=== PATIENT | female | born 1935 | race Caucasian/White ===

== ENCOUNTER 2017-04-18 18:45 | Inpatient (IN) | payer MEDICARE, BC ==
[~2017-04-18] VITALS: Ht 165.1 cm; Wt 94.0 kg
[~2017-04-18 18:45] MED LIST: ATENOLOL100 MG PO; LISINOPRIL40 MG PO; OMEPRAZOLE40 MG PO
[2017-04-18] MEDS ORDERED: MELOXICAM7.5 MG PO (19:16)
[2017-04-18] MEDS ORDERED: ATENOLOL50 MG PO (19:16)
[2017-04-18 19:22] LABS: BASOPHILS # (AUTO) 0.1 (0.0-0.1); BASOPHILS % 0.4 % (0.0-1.0); EOSINOPHILS % 0.1 % (0.0-6.0); HEMATOCRIT 47.1 % (34.2-44.1); HEMOGLOBIN 16.1 g/dL (12.0-16.0); LYMPHOCYTES # (AUTO) 1.6 (1.0-3.2); LYMPHOCYTES % 11.1 % (18.0-39.1); MEAN CORPUSCULAR HEMOGLOBIN 30.8 pg (28-32); MEAN CORPUSCULAR HGB CONC 34.2 g/dL (31-35); MEAN CORPUSCULAR VOLUME 90.1 fL (81-99); MONOCYTES # (AUTO) 1.4 (0.2-0.8); MONOCYTES % 10.1 % (4.4-11.3); NEUTROPHILS # (AUTO) 11.1 (2.1-6.9); NEUTROPHILS % 77.7 % (38.7-80.0); PLATELET COUNT 221 x10e3/uL (140-360); RED BLOOD COUNT 5.23 x10e6/uL (3.6-5.1); RED CELL DISTRIBUTION WIDTH 12.8 % (11.7-14.4)
[2017-04-18 19:34] LABS: BILIRUBIN,URINE NEGATIVE (NEGATIVE); CLARITY,URINE CLOUDY (CLEAR); COLOR,URINE YELLOW (YELLOW); KETONES,URINE 1+ (NEGATIVE); LEUKOCYTE ESTERASE ,URINE 2+ (NEGATIVE); NITRITE,URINE NEGATIVE (NEGATIVE); URINE UROBILINOGEN 0.2 mg/dL (0.2 - 1)
[2017-04-18 19:42] LABS: INR 0.95; PROTHROMBIN TIME 13.2 seconds (11.9-14.5)
[2017-04-18 19:43] LABS: PARTIAL THROMBOPLASTIN TIME 36.1 seconds (23.8-35.5)
[2017-04-18 19:45] LABS: ALBUMIN 3.8 g/dL (3.5-5.0); ALBUMIN/GLOBULIN RATIO 0.9 (0.8-2.0); ANION GAP 16.6 mmol/L (8-16); CALCIUM 9.5 mg/dL (8.4-10.2); CREATININE, SERUM 1.19 mg/dL (0.57-1.11); POTASSIUM 4.6 mmol/L (3.5-5.1)
[2017-04-18] MEDS ORDERED: ONDANSETRON HCL INJ 2 MG/ML VIAL IV STA (19:49)
[2017-04-18 19:51] LABS: CREATINE KINASE MB 4.6 ng/mL (0.00-5.00); TROPONIN I 0.015 ng/mL (0-0.300)
[2017-04-18 19:53] LABS: PROTEIN,URINE DIPSTICK 2+ (NEGATIVE)
--- NOTE | 2017-04-18 19:57 | Diagnostic Imaging Report ---
EXAMINATION: Head CT without contrast. HISTORY:Weakness, status post fall. COMPARISON:CT brain from 07/28/2010. TECHNIQUE: Multidetector axial images were obtained from the foramen magnum to the vertex without contrast. The images were reconstructed using brain and bone algorithms. Thin section brain images were reformatted into coronal and sagittal planes. Intravenous contrast: None IMAGE QUALITY: Acceptable. FINDINGS: Skull/scalp: No abnormality. Parenchyma: Unchanged focal hypodensity in posterior and inferior aspect of right lentiform nucleus either represents prominent perivascular space or old lacunar infarct. Unchanged nonspecific bilateral frontoparietal patchy white matter hypodensity are likely related to small vessel ischemic changes. No acute hemorrhage, mass or acute major vascular territorial infarct. Arteries: Atherosclerotic calcification in bilateral carotid siphon. Dural sinuses: No abnormal density suggestive of thrombosis. Ventricles: Unchanged compensated dilatation due to volume loss. No hydrocephalus. Extra-axial spaces: No abnormal density. Brain volume: Normal for age. Craniocervical junction: No mass, Chiari malformation, or basilar invagination. Sella: No mass. Paranasal/mastoid sinuses: Unchanged 7 mm left fronto-ethmoidal osteoma/sinolith. IMPRESSION: No acute intracranial abnormality, particularly no acute hemorrhage, mass or acute major vascular territorial infarct. No change since CT brain from 07/28/2010. Chronic findings: Mild supratentorial white matter microvascular ischemic changes. Generalized age-related cerebral volume loss. Signed by: Dr. Varsha Jha M.D. on 04/18/2017 7:53 PM
[2017-04-18 20:02] LABS: WBC,URINE (MAN) >50 /HPF (0-5)
[2017-04-18 20:03] LABS: BACTERIA,URINE FEW /HPF
[2017-04-18 20:04] LABS: EPITHELIAL CELLS,URINE RARE /LPF
[2017-04-18] MEDS ORDERED: VANCOMYCIN 1GM/NS 250 ML 250 ML IV STA (20:36)
--- NOTE | 2017-04-18 20:45 | Diagnostic Imaging Report ---
CHEST SINGLE (PORTABLE), 04/18/2017 7:30 PM Technique: CHEST SINGLE (PORTABLE) Comparison: None available. Clinical history: Fever, weakness Findings: See Impression. Underlying scoliotic curvature of the spine. Impression: 1. Normal heart size for technique. 2. Elevated right hemidiaphragm with overlying opacity, favor atelectasis/scarring. If there is ongoing concern for infection, consider follow-up upright PA and lateral. 3. No effusion or pneumothorax. Signed by: Dr Hetal Soto MD on 04/18/2017 8:41 PM
[2017-04-18] MEDS ORDERED: LACTATED RINGER'S 1,000 ML IV ONE ×2 (21:00)
[2017-04-18] MEDS ORDERED: ONDANSETRON HCL INJ 2 MG/ML VIAL IV PRN (21:15)
--- NOTE | 2017-04-18 21:23 | Diagnostic Imaging Report ---
PELVIS AP 1-2 VIEWS Comparison: None Clinical history: Fall, hip pain mostly on the left Findings: Overlying bowel gas partially obscures the bony pelvis. Moderate bilateral hip degenerative changes. Impression: No definite acute fracture on provided single view of the pelvis. Signed by: Dr Hetal Soto MD on 04/18/2017 9:19 PM
[2017-04-18] MEDS: OSELTAMIVIR PHOSPHATE 75 MG CAP PO SCH (21:51)
[2017-04-18 22:31] VITALS: BP 141/86
[2017-04-18] MEDS: PIPER-TAZ 3.375 GM 50 ML IV SCH (22:37)
[2017-04-18 23:01] VITALS: BP 141/86
[2017-04-18] MEDS: LEVOFLOXACIN 500MG/D5W 100ML 100 ML IV SCH (23:32)
[2017-04-19] VITALS (7 sets, daily range): BP systolic 128–157; BP diastolic 63–78
[2017-04-19] MEDS: PIPER-TAZ 3.375 GM 50 ML IV SCH ×3 (00:19→12:00)
[2017-04-19 00:41] LABS: CREATINE KINASE MB 7.4 ng/mL (0.00-5.00); TROPONIN I 0.01 ng/mL (0-0.300)
[2017-04-19] MEDS: LEVOFLOXACIN 500MG/D5W 100ML 100 ML IV SCH (08:48)
[2017-04-19] MEDS: OSELTAMIVIR PHOSPHATE 75 MG CAP PO SCH ×2 (08:48→16:15)
[2017-04-19] MEDS: FAMOTIDINE 20 MG/2 ML VIAL IV SCH ×2 (08:48→22:00)
[2017-04-19 10:15] LABS: BASOPHILS % 0.4 % (0.0-1.0); EOSINOPHILS # (AUTO) 0.1 (0.0-0.4); EOSINOPHILS % 1.4 % (0.0-6.0); HEMATOCRIT 43.8 % (34.2-44.1); LYMPHOCYTES % 19.8 % (18.0-39.1); MEAN CORPUSCULAR HEMOGLOBIN 31.2 pg (28-32); MEAN CORPUSCULAR HGB CONC 34.2 g/dL (31-35); MEAN CORPUSCULAR VOLUME 91.1 fL (81-99); MONOCYTES # (AUTO) 1.2 (0.2-0.8); NEUTROPHILS # (AUTO) 6.6 (2.1-6.9); NEUTROPHILS % 65.9 % (38.7-80.0); PLATELET COUNT 202 x10e3/uL (140-360); RED BLOOD COUNT 4.81 x10e6/uL (3.6-5.1); RED CELL DISTRIBUTION WIDTH 13.2 % (11.7-14.4)
[2017-04-19 10:22] LABS: ALBUMIN/GLOBULIN RATIO 0.8 (0.8-2.0); CALCIUM 8.9 mg/dL (8.4-10.2); CHOL/HDL RATIO 2.6 (3.0-3.6); CREATININE, SERUM 0.97 mg/dL (0.57-1.11)
[2017-04-19 10:41] LABS: CREATINE KINASE MB 4.2 ng/mL (0.00-5.00); TROPONIN I 0.01 ng/mL (0-0.300)
[2017-04-19 10:59] LABS: ANION GAP 13.1 mmol/L (8-16); POTASSIUM 4.1 mmol/L (3.5-5.1)
[2017-04-19] MEDS ORDERED: SODIUM CHLORIDE 0.9% 250ML 250 ML ONE (12:15)
[2017-04-19] MEDS: ACETAMINOPHEN 325 MG TAB PO PRN (16:02)
[2017-04-19] MEDS ORDERED: HYDRALAZINE HCL 20 MG/ML VIAL IV PRN (17:15)
[2017-04-19] MEDS: PIPER-TAZ 3.375 GM 100 ML IV SCH (18:00)
[2017-04-19 18:55] LABS: CREATINE KINASE MB 2.2 ng/mL (0.00-5.00); TROPONIN I 0.01 ng/mL (0-0.300)
[2017-04-19] MEDS: ALBUTEROL/IPRATROPIUM 3 ML NEB NEB SCH (19:00)
[2017-04-20] MEDS: PIPER-TAZ 3.375 GM 100 ML IV SCH ×2 (00:34→06:39)
[2017-04-20] MEDS: ALBUTEROL/IPRATROPIUM 3 ML NEB NEB SCH ×2 (01:00→07:00)
[2017-04-20 01:49] VITALS: BP 124/62
[2017-04-20 04:00] VITALS: BP 140/91
[2017-04-20 06:48] LABS: BASOPHILS # (AUTO) 0.1 (0.0-0.1); BASOPHILS % 0.8 % (0.0-1.0); EOSINOPHILS # (AUTO) 0.3 (0.0-0.4); EOSINOPHILS % 3.4 % (0.0-6.0); HEMATOCRIT 47.2 % (34.2-44.1); HEMOGLOBIN 15.9 g/dL (12.0-16.0); LYMPHOCYTES # (AUTO) 2.8 (1.0-3.2); MEAN CORPUSCULAR HEMOGLOBIN 30.8 pg (28-32); MEAN CORPUSCULAR HGB CONC 33.7 g/dL (31-35); MEAN CORPUSCULAR VOLUME 91.3 fL (81-99); MONOCYTES # (AUTO) 1.2 (0.2-0.8); MONOCYTES % 13.1 % (4.4-11.3); NEUTROPHILS # (AUTO) 4.4 (2.1-6.9); NEUTROPHILS % 50.2 % (38.7-80.0); PLATELET COUNT 196 x10e3/uL (140-360); RED BLOOD COUNT 5.17 x10e6/uL (3.6-5.1); RED CELL DISTRIBUTION WIDTH 13.1 % (11.7-14.4)
[2017-04-20 07:07] LABS: ANION GAP 12.9 mmol/L (8-16); CALCIUM 9.1 mg/dL (8.4-10.2); CREATININE, SERUM 0.98 mg/dL (0.57-1.11); MAGNESIUM 1.4 MG/DL (1.3-2.1); POTASSIUM 3.9 mmol/L (3.5-5.1)
[2017-04-20 07:36] LABS: FREE T4 (FREE THYROXINE) 1.14 ng/dL (0.8-1.8); THYROID STIMULATING HORMONE 0.782 uIU/mL (0.350-4.940)
[2017-04-20 08:00] VITALS: BP_SYST 143; BP_SYST 168; BP_DIAS 76; BP_DIAS 92
[2017-04-20 08:26] LABS: B-TYPE NATRIURETIC PEPTIDE2 13.7 pg/mL (0-100)
[2017-04-20] MEDS: PANTOPRAZOLE SOD 40 MG TABEC PO SCH (08:30)
[2017-04-20] MEDS: GUAIFENESIN 600 MG TAB PO PRN ×2 (09:10→22:26)
[2017-04-20] MEDS: FAMOTIDINE 20 MG/2 ML VIAL IV SCH ×2 (09:22→22:26)
[2017-04-20] MEDS: LEVOFLOXACIN 500MG/D5W 100ML 100 ML IV SCH (09:22)
[2017-04-20] MEDS: LISINOPRIL 20 MG TAB PO SCH (09:22)
[2017-04-20] MEDS: OSELTAMIVIR PHOSPHATE 75 MG CAP PO SCH ×2 (09:23→17:00)
[2017-04-20] MEDS: ATENOLOL 100 MG TAB PO SCH (09:23)
[2017-04-20] MEDS: DIPHENHYDRAMINE HCL 30 GM TUBE TOP PRN (11:00)
[2017-04-20] MEDS ORDERED: CEFTRIAXONE SOD 1 GM/NS 50 ML 50 ML IV SCH (11:30)
[2017-04-20] MEDS ORDERED: AZITHROMYCIN 500MG/NS 250 ML 250 ML IV SCH (11:30)
[2017-04-20 12:00] VITALS: BP 97/59
[2017-04-20] MEDS: LACTOBACILLUS ACIDOPHILUS CAPSULE PO SCH ×2 (12:38→17:00)
[2017-04-20 16:00] VITALS: BP 98/53
[2017-04-21 06:27] LABS: BASOPHILS # (AUTO) 0.1 (0.0-0.1); BASOPHILS % 0.5 % (0.0-1.0); EOSINOPHILS # (AUTO) 0.4 (0.0-0.4); EOSINOPHILS % 4.1 % (0.0-6.0); HEMATOCRIT 43.9 % (34.2-44.1); HEMOGLOBIN 14.5 g/dL (12.0-16.0); LYMPHOCYTES # (AUTO) 3.4 (1.0-3.2); LYMPHOCYTES % 35.8 % (18.0-39.1); MEAN CORPUSCULAR HEMOGLOBIN 30.5 pg (28-32); MEAN CORPUSCULAR VOLUME 92.4 fL (81-99); MONOCYTES % 10.8 % (4.4-11.3); NEUTROPHILS # (AUTO) 4.5 (2.1-6.9); NEUTROPHILS % 48.3 % (38.7-80.0); PLATELET COUNT 204 x10e3/uL (140-360); RED BLOOD COUNT 4.75 x10e6/uL (3.6-5.1); RED CELL DISTRIBUTION WIDTH 13.3 % (11.7-14.4)
[2017-04-21 07:09] LABS: ANION GAP 13.6 mmol/L (8-16); POTASSIUM 4.6 mmol/L (3.5-5.1)
[2017-04-21 07:10] LABS: CALCIUM 8.8 mg/dL (8.4-10.2); CREATININE, SERUM 1.52 mg/dL (0.57-1.11); MAGNESIUM 1.7 MG/DL (1.3-2.1)
[2017-04-21 08:00] VITALS: BP 129/61
[2017-04-21] MEDS: PANTOPRAZOLE SOD 40 MG TABEC PO SCH (08:00)
[2017-04-21] MEDS: LEVOFLOXACIN 500MG/D5W 100ML 100 ML IV SCH (08:59)
[2017-04-21] MEDS: FAMOTIDINE 20 MG/2 ML VIAL IV SCH ×2 (08:59→20:42)
[2017-04-21] MEDS: LACTOBACILLUS ACIDOPHILUS CAPSULE PO SCH ×2 (08:59→16:47)
[2017-04-21] MEDS: LISINOPRIL 20 MG TAB PO SCH (09:01)
[2017-04-21] MEDS: ATENOLOL 100 MG TAB PO SCH (09:01)
[2017-04-21] MEDS: OSELTAMIVIR PHOSPHATE 75 MG CAP PO SCH ×2 (11:30→16:47)
[2017-04-21 12:00] VITALS: BP 131/60
[2017-04-21] MEDS: SODIUM CHLORIDE 0.9% 1000ML 1,000 ML IV SCH (12:14)
[2017-04-21 16:00] VITALS: BP 128/59
[2017-04-21] MEDS: BALSAM PERU/CASTOR OIL 60 GM OINT...G. TP SCH (16:48)
[2017-04-21 20:14] VITALS: BP 134/60
[2017-04-22] MEDS: SODIUM CHLORIDE 0.9% 1000ML 1,000 ML IV SCH (04:03)
[2017-04-22] MEDS: PANTOPRAZOLE SOD 40 MG TABEC PO SCH (07:30)
[2017-04-22 08:00] VITALS: BP 151/63
[2017-04-22] MEDS: LACTOBACILLUS ACIDOPHILUS CAPSULE PO SCH ×2 (08:00→17:00)
[2017-04-22] MEDS: LEVOFLOXACIN 500MG/D5W 100ML 100 ML IV SCH (09:00)
[2017-04-22] MEDS: OSELTAMIVIR PHOSPHATE 75 MG CAP PO SCH ×2 (09:00→17:00)
[2017-04-22] MEDS: FAMOTIDINE 20 MG/2 ML VIAL IV SCH ×2 (09:00→21:24)
[2017-04-22] MEDS: BALSAM PERU/CASTOR OIL 60 GM OINT...G. TP SCH ×2 (09:00→17:00)
[2017-04-22] MEDS: LISINOPRIL 20 MG TAB PO SCH (09:00)
[2017-04-22] MEDS: ATENOLOL 100 MG TAB PO SCH (09:00)
[2017-04-22 12:00] VITALS: BP 129/62
[2017-04-22 12:20] LABS: BASOPHILS % 0.5 % (0.0-1.0); EOSINOPHILS # (AUTO) 0.4 (0.0-0.4); EOSINOPHILS % 4.9 % (0.0-6.0); HEMATOCRIT 42.6 % (34.2-44.1); HEMOGLOBIN 14.2 g/dL (12.0-16.0); LYMPHOCYTES # (AUTO) 2.8 (1.0-3.2); LYMPHOCYTES % 37.5 % (18.0-39.1); MEAN CORPUSCULAR HEMOGLOBIN 30.7 pg (28-32); MEAN CORPUSCULAR HGB CONC 33.3 g/dL (31-35); MONOCYTES # (AUTO) 0.7 (0.2-0.8); MONOCYTES % 9.4 % (4.4-11.3); NEUTROPHILS # (AUTO) 3.6 (2.1-6.9); NEUTROPHILS % 47.3 % (38.7-80.0); PLATELET COUNT 189 x10e3/uL (140-360); RED BLOOD COUNT 4.63 x10e6/uL (3.6-5.1); RED CELL DISTRIBUTION WIDTH 13.2 % (11.7-14.4)
[2017-04-22 12:37] LABS: ANION GAP 10.1 mmol/L (8-16); CALCIUM 8.5 mg/dL (8.4-10.2); CREATININE, SERUM 0.96 mg/dL (0.57-1.11); POTASSIUM 4.1 mmol/L (3.5-5.1)
[2017-04-22] MEDS: GUAIFENESIN 600 MG TAB PO PRN ×2 (14:38→23:29)
[2017-04-22 16:00] VITALS: BP 133/66
[2017-04-22 20:04] VITALS: BP 184/79
[2017-04-23] VITALS (7 sets, daily range): BP systolic 127–146; BP diastolic 16–83
[2017-04-23] MEDS: GUAIFENESIN 600 MG TAB PO PRN (06:11)
[2017-04-23] MEDS: PANTOPRAZOLE SOD 40 MG TABEC PO SCH (07:30)
[2017-04-23] MEDS: LACTOBACILLUS ACIDOPHILUS CAPSULE PO SCH ×2 (08:00→16:47)
[2017-04-23] MEDS: BALSAM PERU/CASTOR OIL 60 GM OINT...G. TP SCH ×2 (09:00→16:47)
[2017-04-23] MEDS: ATENOLOL 100 MG TAB PO SCH (09:00)
[2017-04-23] MEDS: OSELTAMIVIR PHOSPHATE 75 MG CAP PO SCH ×2 (09:00→16:47)
[2017-04-23] MEDS: LEVOFLOXACIN 500MG/D5W 100ML 100 ML IV SCH (09:00)
[2017-04-23] MEDS: LISINOPRIL 20 MG TAB PO SCH (09:00)
[2017-04-23] MEDS: FAMOTIDINE 20 MG/2 ML VIAL IV SCH ×2 (09:00→21:05)
[2017-04-23 09:58] LABS: ANION GAP 10.8 mmol/L (8-16); BLOOD UREA NITROGEN 18 mg/dL (7-26); BUN/CREATININE RATIO 21 (6-25); CALCIUM 8.6 mg/dL (8.4-10.2); CARBON DIOXIDE 18 mmol/L (22-29); CHLORIDE 111 mmol/L (98-107); CREATININE, SERUM 0.87 mg/dL (0.57-1.11); EST GLOMERULAR FILTRATION RATE > 60 ML/MIN (60-); GLUCOSE 177 mg/dL (74-118); POTASSIUM 3.8 mmol/L (3.5-5.1); SODIUM 136 mmol/L (136-145)
[2017-04-23 10:22] LABS: BASOPHILS # (AUTO) 0.1 (0.0-0.1); BASOPHILS % 0.6 % (0.0-1.0); EOSINOPHILS # (AUTO) 0.4 (0.0-0.4); EOSINOPHILS % 4.6 % (0.0-6.0); HEMATOCRIT 43.2 % (34.2-44.1); HEMOGLOBIN 14.6 g/dL (12.0-16.0); LYMPHOCYTES # (AUTO) 2.6 (1.0-3.2); LYMPHOCYTES % 33.2 % (18.0-39.1); MEAN CORPUSCULAR HEMOGLOBIN 31.1 pg (28-32); MEAN CORPUSCULAR HGB CONC 33.8 g/dL (31-35); MEAN CORPUSCULAR VOLUME 91.9 fL (81-99); MONOCYTES # (AUTO) 0.5 (0.2-0.8); MONOCYTES % 6.1 % (4.4-11.3); NEUTROPHILS # (AUTO) 4.3 (2.1-6.9); NEUTROPHILS % 54.9 % (38.7-80.0); PLATELET COUNT 192 x10e3/uL (140-360); RED CELL DISTRIBUTION WIDTH 13.1 % (11.7-14.4)
[2017-04-23] MEDS: ALBUTEROL/IPRATROPIUM 3 ML NEB NEB SCH (21:00)
[2017-04-24 01:08] VITALS: BP 151/70
[2017-04-24] MEDS: GUAIFENESIN 600 MG TAB PO PRN (04:55)
[2017-04-24] MEDS: ACETAMINOPHEN 325 MG TAB PO PRN (04:55)
[2017-04-24] MEDS: DIPHENHYDRAMINE HCL 30 GM TUBE TOP PRN (05:04)
[2017-04-24 06:06] VITALS: BP 150/82
[2017-04-24 07:10] LABS: BASOPHILS # (AUTO) 0.1 (0.0-0.1); BASOPHILS % 0.6 % (0.0-1.0); EOSINOPHILS # (AUTO) 0.3 (0.0-0.4); EOSINOPHILS % 4.1 % (0.0-6.0); HEMATOCRIT 43.9 % (34.2-44.1); HEMOGLOBIN 14.7 g/dL (12.0-16.0); LYMPHOCYTES # (AUTO) 3.2 (1.0-3.2); LYMPHOCYTES % 38.5 % (18.0-39.1); MEAN CORPUSCULAR HEMOGLOBIN 30.6 pg (28-32); MEAN CORPUSCULAR HGB CONC 33.5 g/dL (31-35); MEAN CORPUSCULAR VOLUME 91.3 fL (81-99); MONOCYTES # (AUTO) 0.8 (0.2-0.8); MONOCYTES % 9.5 % (4.4-11.3); NEUTROPHILS # (AUTO) 3.9 (2.1-6.9); NEUTROPHILS % 46.5 % (38.7-80.0); PLATELET COUNT 192 x10e3/uL (140-360); RED BLOOD COUNT 4.81 x10e6/uL (3.6-5.1); RED CELL DISTRIBUTION WIDTH 13.1 % (11.7-14.4)
[2017-04-24] MEDS: ACETYLCYSTEINE 20% INHAL SOLN 30 ML VIAL INH SCH ×3 (07:22→14:57)
[2017-04-24] MEDS: ALBUTEROL/IPRATROPIUM 3 ML NEB NEB SCH ×3 (07:22→14:57)
[2017-04-24] MEDS: PANTOPRAZOLE SOD 40 MG TABEC PO SCH (07:30)
[2017-04-24 07:34] LABS: ANION GAP 12.2 mmol/L (8-16); BLOOD UREA NITROGEN 17 mg/dL (7-26); BUN/CREATININE RATIO 20 (6-25); CALCIUM 8.9 mg/dL (8.4-10.2); CARBON DIOXIDE 20 mmol/L (22-29); CHLORIDE 111 mmol/L (98-107); CREATININE, SERUM 0.87 mg/dL (0.57-1.11); EST GLOMERULAR FILTRATION RATE > 60 ML/MIN (60-); GLUCOSE 105 mg/dL (74-118); POTASSIUM 4.2 mmol/L (3.5-5.1); SODIUM 139 mmol/L (136-145)
[2017-04-24 07:54] VITALS: BP 137/71
[2017-04-24] MEDS: LACTOBACILLUS ACIDOPHILUS CAPSULE PO SCH ×2 (08:00→17:00)
[2017-04-24] MEDS: FAMOTIDINE 20 MG/2 ML VIAL IV SCH (09:00)
[2017-04-24] MEDS: LEVOFLOXACIN 500MG/D5W 100ML 100 ML IV SCH (09:00)
[2017-04-24] MEDS: LISINOPRIL 20 MG TAB PO SCH (09:00)
[2017-04-24] MEDS: ATENOLOL 100 MG TAB PO SCH (09:00)
[2017-04-24] MEDS: BALSAM PERU/CASTOR OIL 60 GM OINT...G. TP SCH ×2 (11:09→17:00)
[2017-04-24] MEDS ORDERED: MUCINEX600 MG PO (14:23)
[2017-04-24] MEDS ORDERED: LEVAQUIN500 MG PO (14:23)
[2017-04-24] MEDS ORDERED: LEVAQUIN IV (14:26)
--- NOTE | 2017-04-24 19:41 | Discharge Summary ---
ADMITTING DIAGNOSES 1. Influenza. 2. Urinary tract infection. 3. Hypertension. 4. Acute kidney injury. 5. Hyponatremia. 6. Tachycardia. 7. Falls and debility. DISCHARGE DIAGNOSES 1. Influenza. 2. Urinary tract infection. 3. Hypertension. 4. Acute kidney injury. 5. Hyponatremia. 6. Tachycardia. 7. Falls and debility. 8. Rule out fracture. 9. Rule out cerebrovascular accident. HISTORY: The patient has a history of hypertension, gastric ulcers and hysterectomy. HOSPITAL COURSE: An 82-year-old female who presents after falling while walking from the restroom back to her bedroom. She lives with her grandson and she had to wait until he got home in the afternoon to get up. She is unsure of how long she was down. She denies dizziness, injury and remembers the whole event. She said [facility] and uses a walker to get around, although over the last couple of days she has felt more weak than ever. The patient was started on Tamiflu and nebs. Home medicines for hypertension and physical therapy consulted for weakness. The patient was found to also have a UTI with E. coli. The patient was started on Levaquin due to sensitivity reports. CT of the brain showed no acute abnormalities. Chest x-ray showed no effusion or pneumothorax. Elevated right hemidiaphragm with overlay opacity favor atelectasis/scarring. A pelvic x-ray showed no fracture. Blood cultures were negative. Sputum culture negative. The patient initially decided she wanted to go to [facility] for rehab as she had a friend who went there and did really well. After waiting for approval for couple of days, the daughter showed up and decided that she wanted her mom to go to [facility], so we repeated the insurance approval. The patient was sent to [facility] with a few more days of Levaquin for the UTI. Her Tamiflu was completed. She was sent on same home meds for hypertension. On the day of discharge, WBC was 8.32, hemoglobin of 14.7, hematocrit 43.9, platelets of 192,000. Sodium 139, potassium 4.2, creatinine 0.87, GFR over 60, BUN 17. The patient had diarrhea during the hospital stay, but was found to be C. diff. negative. The patient will discharge to [facility] for rehab and will return home when safe. Dictated by: Shasta Lyford, [employer]ER CATRINA ANTHONY MD Job#: [id number]
== END 2017-04-24 18:13 | DRG 194 ==
LOC: ER 18:45 → MED/SURG2 21:27
PROVIDERS: ADMIT Internal Medicine; ATTEND Internal Medicine
DX: J15.9 Unspecified bacterial pneumonia (principal); N17.9 Acute kidney failure, unspecified; L89.152 Pressure ulcer of sacral region, stage 2; N39.0 Urinary tract infection, site not specified; E87.1 Hypo-osmolality and hyponatremia; I10 Essential (primary) hypertension; Z91.81 History of falling; R53.81 Other malaise; R00.0 Tachycardia, unspecified; B96.20 Unspecified Escherichia coli [E. coli] as the cause of diseases classified elsewhere; J11.08 Influenza due to unidentified influenza virus with specified pneumonia
CPT/HCPCS: 36415; 70450; 71010; 72170; 80048; 80053; 80061; 81001; 82550; 82553; 83036; 83605; 83735; 83880; 84439; 84443; 84484; 85025; 85610; 85730; 87040; 87070; 87086; 87186; 87205; 87400; 87493; 93005; 99284; J0360; J0456; J1956; J2405; J2543; J3370; J7030; J7050; J7120

== ENCOUNTER 2020-02-14 11:43 | Inpatient (IN) | payer MEDICARE, BC ==
[~2020-02-14] VITALS: Ht 162.6 cm; Wt 82.7 kg
[~2020-02-14 11:43] MED LIST changes: +ATENOLOL50 MG PO; +LEVAQUIN IV; +LEVAQUIN500 MG PO; +MELOXICAM7.5 MG PO; +MUCINEX600 MG PO
[2020-02-14 12:56] LABS: BASOPHILS # (AUTO) 0.1 (0.0-0.1); BASOPHILS % 0.8 % (0.0-1.0); EOSINOPHILS # (AUTO) 0.5 (0.0-0.4); EOSINOPHILS % 4.7 % (0.0-6.0); HEMATOCRIT 48.3 % (34.2-44.1); LYMPHOCYTES % 30.5 % (18.0-39.1); MEAN CORPUSCULAR HEMOGLOBIN 29.9 pg (28-32); MEAN CORPUSCULAR HGB CONC 33.1 g/dL (31-35); MEAN CORPUSCULAR VOLUME 90.1 fL (81-99); MONOCYTES # (AUTO) 1.1 (0.2-0.8); MONOCYTES % 10.6 % (4.4-11.3); NEUTROPHILS # (AUTO) 5.3 (2.1-6.9); NEUTROPHILS % 53.1 % (38.7-80.0); PLATELET COUNT 252 x10e3/uL (140-360); RED BLOOD COUNT 5.36 x10e6/uL (3.6-5.1)
[2020-02-14 12:57] LABS: BILIRUBIN,URINE NEGATIVE (NEGATIVE); CLARITY,URINE SL CLOUDY (CLEAR); COLOR,URINE YELLOW (YELLOW); KETONES,URINE NEGATIVE (NEGATIVE); LEUKOCYTE ESTERASE ,URINE SMALL (NEGATIVE); NITRITE,URINE NEGATIVE (NEGATIVE); PROTEIN,URINE DIPSTICK TRACE (NEGATIVE); URINE UROBILINOGEN 0.2 mg/dL (0.2 - 1)
[2020-02-14 13:04] LABS: BACTERIA,URINE MODERATE /HPF; EPITHELIAL CELLS,URINE FEW /LPF
[2020-02-14 13:08] LABS: INR 0.94
[2020-02-14 13:22] LABS: ALBUMIN/GLOBULIN RATIO 1.1 (0.8-2.0); ANION GAP 16.1 mmol/L (8-16); CALCIUM 9.3 mg/dL (8.4-10.2); MAGNESIUM 1.9 MG/DL (1.3-2.1); POTASSIUM 4.1 mmol/L (3.5-5.1)
[2020-02-14 13:29] LABS: CREATINE KINASE MB 1.1 ng/mL (0-4.3)
--- NOTE | 2020-02-14 13:58 | Diagnostic Imaging Report ---
EXAMINATION: KNEE LEFT THREE VIEWS, LOWER LEG LEFT INDICATION: Trauma COMPARISON: None FINDINGS: AP, lateral and oblique radiograph of the left knee and left lower leg demonstrate no acute fracture or dislocation. Alignment is anatomic. No substantial joint effusion. Mild tricompartmental left knee degenerative changes with joint space narrowing and osteophyte formation. IMPRESSION: No acute osseous injury of the left knee or left lower leg. Mild tricompartmental left knee degenerative changes. Signed by: Lexy Garces MD on 02/14/2020 1:54 PM
--- NOTE | 2020-02-14 13:59 | Diagnostic Imaging Report ---
EXAMINATION: Chest Radiograph - Single (portable) INDICATION: Fall COMPARISON: None FINDINGS: LINES/TUBES:EKG leads overlie the chest. LUNGS:The lungs are moderately inflated. No focal consolidation or pulmonary edema. PLEURA:No pleural effusion or pneumothorax. MEDIASTINUM:The cardiomediastinal silhouette appears normal in size and shape. Atherosclerotic calcifications of the thoracic aorta. BONES/SOFT TISSUES:No acute osseous injury. ABDOMEN:No free air under the diaphragm. IMPRESSION: No radiographically apparent acute traumatic thoracic injury. Signed by: Lexy Garces MD on 02/14/2020 1:55 PM
--- NOTE | 2020-02-14 14:00 | Diagnostic Imaging Report ---
EXAMINATION: PELVIS AP 1-2 VIEWS INDICATION: Fall COMPARISON: None FINDINGS: No acute fracture or dislocation. Alignment is anatomic. Phleboliths in the pelvis. Nonobstructive bowel gas pattern. Degenerative changes of the visualized spine and both hip joints. IMPRESSION: No acute osseous injury of the bony pelvis. Signed by: Lexy Garces MD on 02/14/2020 1:57 PM
--- NOTE | 2020-02-14 14:00 | Diagnostic Imaging Report ---
Examination: CT head without contrast Clinical Indication: ^N ^FALLS ^[id number] ^[id number]. Technique: Transaxial noncontrast images from the skull base through the vertex were obtained. Sagittal and coronal reformatted images were done. Dose modulation, iterative reconstruction, and/or weight based adjustment of the mA/kV was utilized to reduce the radiation dose to as low as reasonably achievable. Comparison: 04/18/[address] Findings: Scalp: No abnormalities. Bones: Intact. No fractures. No blastic or lytic lesions. Brain sulci: Appropriate for patient's age. Ventricles: The ventricular size is out of proportion with respect to cerebral convexity sulci, concerning for a communicating type of hydrocephalus, such as normal pressure hydrocephalus. Extra-axial space: No abnormalities. Parenchyma: There are patchy areas of low-attenuation within subcortical and periventricular white matter, nonspecific, but could represent microvascular ischemic disease. An unchanged right inferior putaminal dilated perivascular space or chronic lacunar infarct. No masses, hemorrhage, or acute or chronic cortical based vascular insults. Suprasellar region: No abnormalities. Craniocervical junction: The foramen magnum is patent. No Chiari one malformation. Incidental findings: Atherosclerotic calcification of the cavernous and supraclinoid internal carotid and V4 segments of the bilateral vertebral arteries. Impression: 1. No acute intracranial finding when compared to prior head CT dated 04/18/2017. 2. 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 3. Unchanged chronic microvascular ischemic change and dilated perivascular space or chronic lacunar infarct of the right putamen. Signed by: Dr. Isabelle Kerns M.D. on 02/14/2020 1:57 PM
--- NOTE | 2020-02-14 14:21 | Diagnostic Imaging Report ---
Examination: CT CERVICAL SPINE WO CONTRAST HISTORY:Falls. COMPARISON:None. TECHNIQUE: Multidetector helical axial images were obtained without contrast from the foramen magnum to T1. Coronal and sagittal reformatted images were done. Bone and soft tissue windows were evaluated. Dose modulation, iterative reconstruction, and/or weight based adjustment of the mA/kV was utilized to reduce the radiation dose to as low as reasonably achievable. FINDINGS: Alignment:Straightening of normal lordosis. Vertebrae: Normal height and density. No acute fracture, infection or neoplasm. Disc space heights: Severe narrowing at C4-C5 through C6-C7. Caliber of spinal canal: Developmentally normal. Posterior fossa and craniocervical junction: Foramen magnum patent. No Chiari 1 malformation. Soft tissues: Atherosclerotic calcification of the bilateral carotid bifurcations. Degenerative changes: Severe left uncovertebral and facet arthropathy and asymmetric left disc osteophyte complex at C3-C4 results in severe left neural foraminal narrowing. No right foraminal or canal stenosis. Grade 1 anterolisthesis. C4-C5: Diffuse disc osteophyte complex with central disc osteophyte protrusion results in severe right and moderate left neural foraminal narrowing and severe canal stenosis. C5-C6: Diffuse disc osteophyte, bilateral uncovertebral arthropathy result in severe left neural foraminal narrowing. No right foraminal or canal stenosis. C6-C7: Diffuse disc osteophyte complex and bilateral uncovertebral arthropathy result in moderate bilateral neural foraminal narrowing and mild canal stenosis. C7-T1: Grade 1 anterolisthesis. No disc bulge/ herniation or foraminal or canal stenosis. Visualized lung apices: No abnormalities. IMPRESSION: 1. No acute abnormalities. 2. Degenerative changes, as above. Signed by: Dr. Isabelle Kerns M.D. on 02/14/2020 2:18 PM
--- NOTE | 2020-02-14 14:44 | Emergency Department Note ---
History of Present Illnes History of Present Illness Chief Complaint: General Medicine Complaints History of Present Illness This is a 85 year old female pt came in via POV for evaluation of recurrent falls, pt has been falling constantly for the past 3 weeks, pt denies feeling faint or dizzy but states that her "legs give out", as per daughter, pt has a walker and a wheelchair at home that she uses to ambulate but pt keeps falling. Historian: Patient, Family Member Call Center Representative Required: No Onset (how long ago): week(s) (3) Location: LEGS Quality: GIVE OUT Radiation: Reports non-radiation Severity: moderate Onset quality: gradual Timing of current episode: intermittent Progression: waxing and waning Chronicity: new Context: Denies recent illness Relieving factors: none Exacerbating factors: none Associated symptoms: Reports denies other symptoms Past Medical/Family History Physician Review I have reviewed the patient's past medical and family history. Any updates have been documented here. Past Medical History Recent Fever: No Clinical Suspicion of Infectio: No New/Unexplained Change in Ment: No Past Medical History: Hypertension, GERD Other Medical History: hiatal hernia Past Surgical History: None Social History Smoking Cessation: Never Smoker Counseling Performed: No Alcohol Use: None Any Illegal Drug Use: No TB Exposure/Symptoms: No Physically hurt or threatened: No Family History Family history of heart diseas: No Other Any Pre-Existing Lines (PICC,: No Review of Systems Review of Systems Constitutional: Reports as per HPI EENTM: Reports no symptoms Cardiovascular: Reports no symptoms Respiratory: Reports no symptoms Gastrointestinal: Reports no symptoms Genitourinary: Reports no symptoms Musculoskeletal: Reports as per HPI Integumentary: Reports no symptoms Neurological: Reports no symptoms Psychological: Reports no symptoms Endocrine: Reports no symptoms Hematological/Lymphatic: Reports no symptoms Physical Exam Related Data Allergies: Coded Allergies: Sulfa (Sulfonamide Antibiotics) (Verified Allergy, Mild, 03/28/09) cephalexin (Verified Allergy, Mild, 03/28/09) metronidazole (Verified Allergy, Mild, 03/28/09) Triage Vital Signs Vital Signs Date Time Temp Pulse Resp B/P (MAP) Pulse Ox O2 Delivery O2 Flow Rate FiO2 02/14/20 12:07 84 20 148/84 99 Room Air Vital signs reviewed: Yes Physical Exam CONSTITUTIONAL Constitutional: Present well-developed, Present well-nourished HENT HENT: Present normocephalic, Present atraumatic, Present oropharynx clear/moist, Present nose normal HENT L/R: Present left ext ear normal, Present right ext ear normal EYES Eyes: Reports PERRL, Reports conjunctivae normal NECK Neck: Present ROM normal PULMONARY Pulmonary: Present effort normal, Present breath sounds normal CARDIOVASCULAR Cardiovascular: Present regular rhythm, Present heart sounds normal, Present capillary refill normal, Present normal rate GASTROINTESTINAL Abdominal: Present soft, Present nontender, Present bowel sounds normal GENITOURINARY Genitourinary: Present exam deferred SKIN Skin: Present warm, Present dry MUSCULOSKELETAL Musculoskeletal: Present edema (LEFT LEG), Present other (TTP LEFT KNEE AND ALSO LEFT CALF) NEUROLOGICAL Neurological: Present alert, Present oriented x 3, Present no gross motor or sensory deficits PSYCHOLOGICAL Psychological: Present mood/affect normal, Present judgement normal Results Laboratory Result Diagram: 02/14/20 1220 02/14/20 1220 Laboratory Laboratory Tests Test 02/14/20 12:43 02/14/20 12:27 02/14/20 12:20 Urine Color Yellow (YELLOW) Urine Clarity Sl cloudy (CLEAR) Urine pH 6 (5 - 7) Urine Specific [place] 1.025 (1.010-1.025) Urine Protein Trace (NEGATIVE) Urine Glucose (UA) Negative (NEGATIVE) Urine Ketones Negative (NEGATIVE) Urine Blood Trace (NEGATIVE) Urine Nitrite Negative (NEGATIVE) Urine Bilirubin Negative (NEGATIVE) Urine Urobilinogen 0.2 mg/dL (0.2 - 1) Urine Leukocyte Esterase Small (NEGATIVE) Urine RBC 6-10 /HPF (0-5) Urine WBC 11-20 /HPF (0-5) Urine Epithelial Cells Few /LPF (NONE) Urine Bacteria Moderate /HPF (NONE) White Blood Count 9.96 x10e3/uL (4.8-10.8) Red Blood Count 5.36 x10e6/uL (3.6-5.1) Hemoglobin 16.0 g/dL (12.0-16.0) Hematocrit 48.3 % (34.2-44.1) Mean Corpuscular Volume 90.1 fL (81-99) Mean Corpuscular Hemoglobin 29.9 pg (28-32) Mean Corpuscular Hemoglobin Concent 33.1 g/dL (31-35) Red Cell Distribution Width 13.0 % (11.7-14.4) Platelet Count 252 x10e3/uL (140-360) Neutrophils (%) (Auto) 53.1 % (38.7-80.0) Lymphocytes (%) (Auto) 30.5 % (18.0-39.1) Monocytes (%) (Auto) 10.6 % (4.4-11.3) Eosinophils (%) (Auto) 4.7 % (0.0-6.0) Basophils (%) (Auto) 0.8 % (0.0-1.0) Neutrophils # (Auto) 5.3 (2.1-6.9) Lymphocytes # (Auto) 3.0 (1.0-3.2) Monocytes # (Auto) 1.1 (0.2-0.8) Eosinophils # (Auto) 0.5 (0.0-0.4) Basophils # (Auto) 0.1 (0.0-0.1) Absolute Immature Granulocyte (auto 0.03 x10e3/uL (0-0.1) Prothrombin Time 13.0 seconds (11.9-14.5) Prothromb Time International Ratio 0.94 Activated Partial Thromboplast Time 36.0 seconds (23.8-35.5) Sodium Level 138 mmol/L (136-145) Potassium Level 4.1 mmol/L (3.5-5.1) Chloride Level 105 mmol/L (98-107) Carbon Dioxide Level 21 mmol/L (22-29) Anion Gap 16.1 mmol/L (8-16) Blood Urea Nitrogen 15 mg/dL (7-26) Creatinine 1.00 mg/dL (0.57-1.11) Estimat Glomerular Filtration Rate 52 ML/MIN (60-) BUN/Creatinine Ratio 15 (6-25) Glucose Level 97 mg/dL (74-118) Calcium Level 9.3 mg/dL (8.4-10.2) Magnesium Level 1.9 MG/DL (1.3-2.1) Total Bilirubin 0.9 mg/dL (0.2-1.2) Aspartate Amino Transf (AST/SGOT) 27 IU/L (5-34) Alanine Aminotransferase (ALT/SGPT) 22 IU/L (0-55) Alkaline Phosphatase 116 IU/L (40-150) Creatine Kinase 40 IU/L (29-168) Creatine Kinase MB 1.10 ng/mL (0-4.3) Troponin I 0.003 ng/mL (0-0.300) B-Type Natriuretic Peptide 11.3 pg/mL (0-100) Total Protein 7.8 g/dL (6.5-8.1) Albumin 4.0 g/dL (3.5-5.0) Globulin 3.8 g/dL (2.3-3.5) Albumin/Globulin Ratio 1.1 (0.8-2.0) Lab results reviewed: Yes Imaging Imaging results reviewed: Yes Procedures 12 Lead ECG Interpretation ECG Interpretation : ECG: ECG 1 Call Center Representative: Interpreted by ED physician Date: Feb 14, 2020 Time: 12:39 Rhythm: sinus rhythm Rate: normal BPM: 75 QRS axis: left ST segments normal: Yes T waves normal: Yes Clinical Impression: normal ECG Assessment & Plan Medical Decision Making MDM MULTIPLE FALLS, WEAKNESS - CBC, CHEM, ECG, CARDIACS, PANCX'S, UA, CXR, CT BRAIN/C-SPINE, XRAY LEFT KNEE/LOWER LEG, VENOUS DOPPLER LEFT LEG - EVAL CEREBRAL BLEED, CERV SPINE FX, KNEE FX, DVT, UTI Reassessment Reassessment ADMIT TO DR ANTHONY Assessment & Plan Final Impression: (1) UTI (urinary tract infection) (2) Weakness (3) Falls frequently Depart Disposition: ADMITTED Last Vital Signs Date Time Temp Pulse Resp B/P (MAP) Pulse Ox O2 Delivery O2 Flow Rate FiO2 02/14/20 12:07 84 20 148/84 99 Room Air Home Meds Active Scripts [Levaquin] No Conflict Check, 500 MG IV DAILY for 6 Days Prov:SUHAS ACUNA CATALOGUE LIBRARIAN 04/24/17 Reported Medications Atenolol (ATENOLOL) 50 Mg Tablet, 100 MG PO DAILY 04/18/17 Meloxicam (MELOXICAM) 7.5 Mg Tablet, 7.5 MG PO BID, #30 TAB 04/18/17 Omeprazole (OMEPRAZOLE) 40 Mg Capsule.dr, 40 MG PO DAILY 09/29/14 Lisinopril (LISINOPRIL) 40 Mg Tablet, 40 MG PO DAILY 09/29/14 Atenolol (ATENOLOL) 100 Mg Tablet, 100 MG PO DAILY 09/29/14 Medications in the ED Piperacillin Sod/ Tazobactam Sod 50 ml @ 50 mls/hr 0300,0900,1500,2100 IV ; Start 02/14/20 at 14:45; Stop 02/21/20 at 14:44 FUENTES TIM MD Feb 14, 2020 14:44
[2020-02-14] MEDS: PIPER-TAZ 3.375 GM 50 ML IV SCH ×2 (14:50→21:30)
[2020-02-14] MEDS ORDERED: ONDANSETRON HCL INJ 2MG/ML 2ML 2 MG/ML VIAL IV PRN (15:45)
[2020-02-14] MEDS ORDERED: SODIUM CHLORIDE 0.9% 1000ML 1,000 ML IV SCH (15:45)
[2020-02-14 19:00] VITALS: BP 148/79
[2020-02-14 20:00] VITALS: BP 148/79
[2020-02-14] MEDS ORDERED: BENADRYL25 M1 PO (22:53)
[2020-02-15] VITALS (7 sets, daily range): BP systolic 133–147; BP diastolic 63–71
[2020-02-15] MEDS: PIPER-TAZ 3.375 GM 50 ML IV SCH ×4 (03:00→21:12)
[2020-02-15 06:02] LABS: BASOPHILS # (AUTO) 0.1 (0.0-0.1); BASOPHILS % 0.8 % (0.0-1.0); EOSINOPHILS # (AUTO) 0.5 (0.0-0.4); EOSINOPHILS % 5.4 % (0.0-6.0); HEMATOCRIT 42.9 % (34.2-44.1); HEMOGLOBIN 14.1 g/dL (12.0-16.0); LYMPHOCYTES % 32.7 % (18.0-39.1); MEAN CORPUSCULAR HEMOGLOBIN 29.9 pg (28-32); MEAN CORPUSCULAR HGB CONC 32.9 g/dL (31-35); MEAN CORPUSCULAR VOLUME 90.9 fL (81-99); MONOCYTES % 10.4 % (4.4-11.3); NEUTROPHILS # (AUTO) 4.7 (2.1-6.9); NEUTROPHILS % 50.3 % (38.7-80.0); PLATELET COUNT 206 x10e3/uL (140-360); RED BLOOD COUNT 4.72 x10e6/uL (3.6-5.1)
[2020-02-15 06:30] LABS: ALBUMIN 3.2 g/dL (3.5-5.0); ANION GAP 12.9 mmol/L (8-16); CALCIUM 8.6 mg/dL (8.4-10.2); CREATININE, SERUM 0.97 mg/dL (0.57-1.11); POTASSIUM 3.9 mmol/L (3.5-5.1)
[2020-02-15 07:06] LABS: CREATINE KINASE 33 IU/L (29-168)
[2020-02-15] MEDS ORDERED: HYDRALAZINE HCL 20 MG/ML VIAL IV PRN (07:45)
[2020-02-15] MEDS ORDERED: POLYETHYLENE GLYCOL 3350 17 GM PACK PO PRN (07:45)
[2020-02-15] MEDS: DOCUSATE SODIUM 100 MG CAP PO SCH ×2 (08:59→17:19)
[2020-02-15] MEDS: FAMOTIDINE 20 MG/2 ML VIAL IV SCH ×2 (08:59→17:19)
[2020-02-15] MEDS: ACETAMINOPHEN 325 MG TAB PO PRN (12:05)
--- NOTE | 2020-02-15 18:24 | History and Physical ---
PRIMARY CARE PHYSICIAN: Dr. Shannon Boyle CONSULTING PHYSICIANS: None. CHIEF COMPLAINT: Falls. HISTORY OF PRESENT ILLNESS: The patient is an 85-year-old female who was admitted through the emergency room via POV for evaluation of recurrent falls, which has been constant in the last three weeks. She states that her legs give way when she ambulates and she is unable to get from her bedroom to the kitchen despite the use of a rolling walker. The patient is seen in room 212 with no acute distress. PAST MEDICAL HISTORY: Recurrent falls, gastroesophageal reflux disease, hypertension, hiatal hernia, flu, left leg pain for 10 years, CHEESH-NA. PAST SURGICAL HISTORY: Hysterectomy in 1969. FAMILY HISTORY: Mother had multiple myeloma. Daughter had cancer. Father had blood clots and heart problems. She had three brothers and one sister, all before the age of 80. Among them, they had diabetes, heart problems, lung problems, hyperlipidemia. SOCIAL HISTORY: The patient is 85 years old, retired, , lives at home with her daughter. Has a rolling walker and wheelchair at home. ALLERGIES: METRONIDAZOLE, CEPHALEXIN, SULFA. HOME MEDICATIONS: Benadryl 25 mg p.o. at bedtime, omeprazole 40 mg daily. REVIEW OF SYSTEMS: A 14-point review of systems was completed. The patient has no complaints regarding eyes, ears, nose, and throat. She is hard of hearing. The patient has no complaints regarding respiratory, genitourinary, psychiatric, integumentary, cardiovascular, gastrointestinal, neurologic, endocrine, immunological, hematologic/lymphatic systems. CONSTITUTIONAL: She has an ache overall, but no specific pain. GENITOURINARY: Denies dysuria. GASTROINTESTINAL: Last bowel movement was today. MUSCULOSKELETAL: Left knee has been giving way. She has chronic left leg pain for the last 10 years. She was able to ambulate with a rolling walker to her doorway today. PHYSICAL EXAMINATION: VITAL SIGNS: Temperature 98.6, afebrile, pulse 65, blood pressure 134/63, respirations 18, and oxygen saturation 94%. Height 5 feet 4 inches. Weight 182 pounds. BMI 31.23. GENERAL: No acute distress, supine. LUNGS: Clear to auscultation. Respiratory pattern even and unlabored. No supplemental oxygen. HEENT: EOMI. Moist mucous membranes. NECK: Supple. No lymphadenopathy, thyromegaly, or JVD. CARDIOVASCULAR: Regular rate and rhythm. No murmur. ABDOMEN: Obese, soft. Bowel sounds x4 quadrants. EXTREMITIES: No pitting edema. No clubbing, cyanosis, or signs of DVT. NEUROLOGICAL: GCS 15. Nonfocal. LABORATORY DATA: WBCs 9.27, hemoglobin 14.1, hematocrit 42.9, platelets 206. PT 13, INR 0.94, PTT 36. Sodium 140, potassium 3.9, chloride 109, CO2 of 22, anion gap 12.9, BUN 17, creatinine 0.97, estimated GFR 54, glucose 102, calcium 8.6, total bilirubin 1.1, AST 20, ALT 16, alkaline phosphatase 89. Cardiac enzymes negative x3 sets. B-type natriuretic peptide 11.3, total protein 6.3, albumin 3.2. Urinalysis done 02/13 shows specific gravity of 1.025, trace amount of protein, trace amount of blood, RBC 6-10, WBC 11-20, moderate urine bacteria. Coronavirus PCR collected 02/13 remains pending. Blood cultures x2 have shown no growth after 24 hours. Preliminary urine culture shows no growth. Lab is holding specimen. IMAGING/OTHER: 12-lead EKG showed no showed sinus rhythm with a heart rate of 75. Physical therapy evaluation. The patient ambulated 25 feet with minimal assistance with rolling walker, assistive device. shelter facility has been recommended. She had a left lower extremity venous Doppler ultrasound which was negative for DVT on 02/13. CT of the brain showed no acute intracranial finding. When compared to the prior head CT, unchanged findings related to communicating type of hydrocephalus such as normal pressure hydrocephalus, unchanged chronic microvascular ischemic change and dilated perivascular space or chronic lacunar infarct of the right putamen. CT of the cervical spine showed severe left uncovertebral and facet arthropathy and asymmetric left disk osteophyte complex at C3-C4 results in severe left neural foraminal narrowing. Grade 1 anterolisthesis C4-C5, C5-C6, C6-C7 and C7-T1 also affected. No acute abnormalities. Chest x-ray showed no radiographically apparent acute traumatic thoracic injury. Left knee x-ray showed mild tricompartmental left knee degenerative changes with no acute osseous injury of the left knee or left lower leg. Pelvis x-ray showed no acute osseous injury of the bony pelvis. ASSESSMENT/PLAN: 1. Status post fall at home with recurrent falls for 3 weeks. Physical therapy has seen and evaluated the patient and detention facility has been recommended based on their evaluation. Case Management consulted for detention facility evaluation. 2. Acute urinary tract infection, present on admission. Urinalysis with small amount of leukocyte esterases, WBCs 11-20, and moderate bacteria. We will await final urine culture and sensitivity results. Continue Zosyn. WBCs 9.27 (9.96). Afebrile. 3. Ambulatory dysfunction. Physical therapy to continue. 4. Generalized weakness. Physical therapy to continue. 5. Controlled hypertension. Blood pressure 134/63. Monitor. 6. 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 Pain control as needed. Monitor. 7. Gastroesophageal reflux disease/prophylaxis. IV Pepcid. Ambulatory with assistance. 8. Obesity with BMI of 31.23. Dietary restrictions. Inpatient, billing code [id number], time spent 60 minutes. Dictated by Duncan Gamboa NP MD VLADIMIR MorrisP/MODL /[id number]
[2020-02-15] MEDS: TEMAZEPAM 15 MG CAP PO PRN (21:12)
[2020-02-16] VITALS (9 sets, daily range): BP systolic 130–149; BP diastolic 65–88
[2020-02-16] MEDS: PIPER-TAZ 3.375 GM 50 ML IV SCH ×4 (02:57→20:18)
[2020-02-16] MEDS: ACETAMINOPHEN 325 MG TAB PO PRN ×2 (06:16→12:02)
[2020-02-16 06:18] LABS: BASOPHILS # (AUTO) 0.1 (0.0-0.1); BASOPHILS % 0.6 % (0.0-1.0); EOSINOPHILS # (AUTO) 0.6 (0.0-0.4); EOSINOPHILS % 7.4 % (0.0-6.0); HEMATOCRIT 45.4 % (34.2-44.1); HEMOGLOBIN 14.8 g/dL (12.0-16.0); LYMPHOCYTES # (AUTO) 2.8 (1.0-3.2); MEAN CORPUSCULAR HGB CONC 32.6 g/dL (31-35); MEAN CORPUSCULAR VOLUME 91.9 fL (81-99); MONOCYTES # (AUTO) 0.9 (0.2-0.8); MONOCYTES % 11.7 % (4.4-11.3); NEUTROPHILS # (AUTO) 3.6 (2.1-6.9); NEUTROPHILS % 44.8 % (38.7-80.0); PLATELET COUNT 214 x10e3/uL (140-360); RED BLOOD COUNT 4.94 x10e6/uL (3.6-5.1)
[2020-02-16 06:55] LABS: ANION GAP 13.1 mmol/L (8-16); CALCIUM 8.8 mg/dL (8.4-10.2); CHOL/HDL RATIO 2.8 (3.0-3.6); CREATININE, SERUM 0.92 mg/dL (0.57-1.11); MAGNESIUM 1.9 MG/DL (1.3-2.1); PHOSPHORUS 3.5 MG/DL (2.3-4.7); POTASSIUM 4.1 mmol/L (3.5-5.1)
[2020-02-16 06:59] LABS: THYROID STIMULATING HORMONE 1.218 uIU/mL (0.350-4.940)
[2020-02-16] MEDS: DOCUSATE SODIUM 100 MG CAP PO SCH ×2 (08:01→15:17)
--- NOTE | 2020-02-16 08:52 | Diagnostic Imaging Report ---
Left ankle, 3 views. History: Left ankle pain, post fall. Findings: There is diffuse soft tissue swelling. The bones are diffusely osteopenic. There is no evidence of fracture or dislocation. There are no lytic or sclerotic lesions. Mild degenerative changes are present in the ankle joint. A plantar calcaneus spur is noted. IMPRESSION: No acute osseous abnormality. Signed by: Rigoberto Jolly on 02/16/2020 8:49 AM
[2020-02-16] MEDS: FAMOTIDINE 20 MG/2 ML VIAL IV SCH ×2 (09:10→16:54)
--- NOTE | 2020-02-16 14:44 | NUR ---
PT AND DAUGHTER AGREED TO [facility], WILL FAX CLINICALS, PAS[facility] AND COVID FORM TO FACILITY
[2020-02-16] MEDS: TEMAZEPAM 15 MG CAP PO PRN (20:18)
[2020-02-17] MEDS: PIPER-TAZ 3.375 GM 50 ML IV SCH ×2 (03:17→09:57)
[2020-02-17] MEDS ORDERED: GABAPENTIN300 MG PO (05:55)
[2020-02-17 06:55] LABS: BASOPHILS # (AUTO) 0.1 (0.0-0.1); BASOPHILS % 0.5 % (0.0-1.0); EOSINOPHILS # (AUTO) 0.7 (0.0-0.4); EOSINOPHILS % 7.2 % (0.0-6.0); HEMATOCRIT 47.4 % (34.2-44.1); HEMOGLOBIN 15.6 g/dL (12.0-16.0); LYMPHOCYTES # (AUTO) 2.7 (1.0-3.2); LYMPHOCYTES % 29.6 % (18.0-39.1); MEAN CORPUSCULAR HEMOGLOBIN 30.5 pg (28-32); MEAN CORPUSCULAR HGB CONC 32.9 g/dL (31-35); MEAN CORPUSCULAR VOLUME 92.6 fL (81-99); MONOCYTES # (AUTO) 0.8 (0.2-0.8); MONOCYTES % 8.1 % (4.4-11.3); NEUTROPHILS % 54.2 % (38.7-80.0); PLATELET COUNT 224 x10e3/uL (140-360); RED BLOOD COUNT 5.12 x10e6/uL (3.6-5.1); RED CELL DISTRIBUTION WIDTH 12.9 % (11.7-14.4)
[2020-02-17 07:17] LABS: ANION GAP 13.2 mmol/L (8-16); CALCIUM 9.1 mg/dL (8.4-10.2); CREATININE, SERUM 0.99 mg/dL (0.57-1.11); POTASSIUM 4.2 mmol/L (3.5-5.1)
[2020-02-17] MEDS: DOCUSATE SODIUM 100 MG CAP PO SCH (09:00)
[2020-02-17] MEDS ORDERED: GABAPENTIN 300 MG CAP PO SCH (09:00)
[2020-02-17] MEDS ORDERED: GABAPENTIN 100 MG CAP PO SCH (09:00)
--- NOTE | 2020-02-17 09:11 | NUR ---
[facility] FACILITY DISCHARGE INFORMATION PATIENT HAS BEEN ACCEPTED TO: NAME: ADELINA VAN ADDRESS: [id number] [employer]HICLE SALESPERSON: ELEONORA DOTY MD: BRAN ROOM:[address] NURSE CALL REPORT TO: [phone] IMM SIGNED AND OBTAINED (if applicable): IMM THE FOLLOWING DOCUMENTS MUST ACCOMPANY PATIENT FOR TRANSFER: COPIED CHART:PACKET
--- NOTE | 2020-02-17 09:29 | NUR ---
EDUCATED ABOUT IMM, SIGNED, FILED IN CHART, WITH COPY LEFT WITH FAMILY AT BEDSIDE.
[2020-02-17] MEDS: FAMOTIDINE 20 MG/2 ML VIAL IV SCH (09:57)
[2020-02-17 09:58] VITALS: BP 144/81
--- NOTE | 2020-02-17 10:01 | NUR ---
The pt. is to transfer to SNf today
[2020-02-17 10:45] VITALS: BP 144/81
--- NOTE | 2020-02-17 18:07 | Discharge Summary ---
ADMISSION DIAGNOSES: Status post fall with recurrent falls for the past 3 weeks; acute urinary tract infection, present on admission; ambulatory dysfunction; hypertension; gastroesophageal reflux disease. DISCHARGE DIAGNOSES: Status post fall with recurrent falls for the past 3 weeks; acute urinary tract infection, present on admission; ambulatory dysfunction; hypertension; gastroesophageal reflux disease; rule out urinary tract infection. HISTORY: Recurrent falls, GERD, hypertension, bilateral lower extremity pain of the lower extremities, left greater than right, and hard of hearing. SURGICAL HISTORY: Hysterectomy. FAMILY HISTORY: The patient's mother had multiple myeloma. The patient's daughter also had cancer. SOCIAL HISTORY: The patient lives at home with her daughter. She has a rolling walker and a wheelchair at home. The patient appears to believe that her daughter and granddaughter are trying to get her place at a prison so they can take over her home. HOSPITAL COURSE: An 85-year-old female admits to the ER for evaluation of recurrent falls, which has happened over the last 3 weeks. She says that her legs give way as she is walking despite using the rolling walker. On admission, all imaging is negative including CT of the brain, ankle x-ray, leg x-ray, hip x-ray. Per PT evaluation, the patient is safest to discharge to halfway facility. Initially, the UA showed leukocytes, so the patient was started on antibiotics, but the urine culture was negative. So, the patient will discharge to halfway facility with home medicines of Benadryl for sleep and omeprazole. She was given a new prescription for gabapentin for presumed neuropathy. The patient understands discharge instructions and agrees to plan. She will follow up with primary care in 1 to 2 weeks. Dictated by Shasta Shah NP MD TRAVIS Morris/MODL /[id number]
== END 2020-02-17 13:11 | DRG 690 ==
LOC: ER 13:08 → ERHOLD 15:44 → MED/SURG2 19:00
PROVIDERS: ADMIT Internal Medicine; ATTEND Internal Medicine
DX: N39.0 Urinary tract infection, site not specified (principal); I10 Essential (primary) hypertension; Z91.81 History of falling; Z74.09 Other reduced mobility; M50.30 Other cervical disc degeneration, unspecified cervical region; K21.9 Gastro-esophageal reflux disease without esophagitis; Z11.59 Encounter for screening for other viral diseases; H91.90 Unspecified hearing loss, unspecified ear; E66.9 Obesity, unspecified; Z68.31 Body mass index [BMI] 31.0-31.9, adult
CPT/HCPCS: 36415; 70450; 71045; 72125; 72170; 80048; 80053; 80061; 81001; 82550; 82553; 83036; 83735; 83880; 84100; 84443; 84484; 85025; 85610; 85730; 87040; 87086; 93005; 93971; 97139; 99285; J2405; J2543; J7030

== ENCOUNTER 2020-02-26 17:14 | Inpatient (IN) | payer MEDICARE, BC ==
[~2020-02-26] VITALS: Ht 165.1 cm; Wt 83.5 kg
[~2020-02-26 17:14] MED LIST changes: +BENADRYL25 M1 PO; +GABAPENTIN300 MG PO
[2020-02-26] MEDS ORDERED: LEVOFLOXACIN 500MG/D5W 100ML 100 ML IV STA (18:07)
[2020-02-26] MEDS ORDERED: ONDANSETRON HCL INJ 2MG/ML 2ML 2 MG/ML VIAL IV STA (18:07)
[2020-02-26] MEDS ORDERED: SODIUM CHLORIDE 0.9% 1000ML 1,000 ML IV ONE ×3 (18:15→20:30)
[2020-02-26] MEDS ORDERED: ACETAMINOPHEN 325 MG TAB PO ONE (18:15)
[2020-02-26 18:27] LABS: BASOPHILS # (AUTO) 0.1 (0.0-0.1); BASOPHILS % 0.5 % (0.0-1.0); LYMPHOCYTES # (AUTO) 0.6 (1.0-3.2); LYMPHOCYTES % 2.5 % (18.0-39.1); MEAN CORPUSCULAR HEMOGLOBIN 29.7 pg (28-32); MEAN CORPUSCULAR HGB CONC 33.3 g/dL (31-35); MEAN CORPUSCULAR VOLUME 89.2 fL (81-99); MONOCYTES # (AUTO) 1.6 (0.2-0.8); MONOCYTES % 6.9 % (4.4-11.3); NEUTROPHILS # (AUTO) 20.5 (2.1-6.9); NEUTROPHILS % 89.1 % (38.7-80.0); PLATELET COUNT 204 x10e3/uL (140-360); RED BLOOD COUNT 5.38 x10e6/uL (3.6-5.1); RED CELL DISTRIBUTION WIDTH 13.3 % (11.7-14.4)
[2020-02-26 18:32] LABS: CLARITY,URINE CLOUDY (CLEAR); COLOR,URINE YELLOW (YELLOW)
[2020-02-26 18:33] LABS: KETONES,URINE TRACE (NEGATIVE); LEUKOCYTE ESTERASE ,URINE LARGE (NEGATIVE); NITRITE,URINE POSITIVE (NEGATIVE); PROTEIN,URINE DIPSTICK >=300 (NEGATIVE); URINE UROBILINOGEN 0.2 mg/dL (0.2 - 1)
[2020-02-26 18:35] LABS: BACTERIA,URINE MANY /HPF; WBC,URINE (MAN) >50 /HPF (0-5)
[2020-02-26 18:36] LABS: EPITHELIAL CELLS,URINE FEW /LPF; MUCUS,URINE MODERATE (RARE)
[2020-02-26 18:48] LABS: ALBUMIN 2.9 g/dL (3.5-5.0); ALBUMIN/GLOBULIN RATIO 0.6 (0.8-2.0); ANION GAP 19.1 mmol/L (8-16); CALCIUM 9.2 mg/dL (8.4-10.2); CREATININE, SERUM 1.6 mg/dL (0.57-1.11); POTASSIUM 4.1 mmol/L (3.5-5.1)
[2020-02-26 18:54] LABS: CREATINE KINASE MB 1.3 ng/mL (0-5.0)
[2020-02-26 18:55] LABS: B-TYPE NATRIURETIC PEPTIDE2 48.1 pg/mL (0-100)
[2020-02-26 18:57] LABS: BAND NEUTROPHILS % (MANUAL) 5 %; LYMPHOCYTES % (MANUAL) 5 % (19-48); MONOCYTES % (MANUAL) 8 % (3.4-9.0); NEUTROPHILS % (MANUAL) 82 % (40-74)
[2020-02-26 18:58] LABS: PLATELET ESTIMATE ADEQUATE; PLATELET MORPHOLOGY COMMENT NORMAL; RBC MORPHOLOGY COMMENT NORMAL
[2020-02-26] MEDS ORDERED: ONDANSETRON HCL INJ 2MG/ML 2ML 2 MG/ML VIAL IV PRN (22:00)
[2020-02-26 23:14] VITALS: BP 137/59
[2020-02-26 23:30] VITALS: BP 137/59
[2020-02-26] MEDS ORDERED: SODIUM CHLORIDE 0.9% 1000ML 1,000 ML ONE (23:45)
[2020-02-27] MEDS: ACETAMINOPHEN 325 MG TAB PO PRN ×4 (00:15→23:40)
[2020-02-27 04:00] VITALS: BP 141/58
[2020-02-27 07:08] VITALS: BP 148/65
[2020-02-27 07:09] VITALS: BP 148/65
[2020-02-27] MEDS ORDERED: HYDRALAZINE HCL 20 MG/ML VIAL IV PRN (09:00)
[2020-02-27] MEDS: ACETAMINOPHEN/CODEINE 300MG - 30MG TAB PO PRN (09:35)
[2020-02-27] MEDS: GABAPENTIN 300 MG CAP PO SCH ×2 (09:35→17:40)
[2020-02-27] MEDS: PANTOPRAZOLE SOD 40 MG TABEC PO SCH (09:35)
[2020-02-27 16:00] VITALS: BP 133/90
[2020-02-27] MEDS: LEVOFLOXACIN 250MG/D5W 50ML 50 ML IV SCH (17:40)
[2020-02-27] MEDS ORDERED: LEVOFLOXACIN 500MG/D5W 100ML 100 ML IV SCH (18:00)
[2020-02-27 19:25] VITALS: BP 134/97
[2020-02-27 21:10] VITALS: BP 134/97
[2020-02-27] MEDS: DIPHENHYDRAMINE HCL 25 MG CAP PO SCH (21:14)
[2020-02-28] VITALS (8 sets, daily range): BP systolic 108–172; BP diastolic 73–93
[2020-02-28 08:13] LABS: BASOPHILS # (AUTO) 0.1 (0.0-0.1); BASOPHILS % 0.4 % (0.0-1.0); EOSINOPHILS % 0.3 % (0.0-6.0); HEMATOCRIT 41.1 % (34.2-44.1); HEMOGLOBIN 13.5 g/dL (12.0-16.0); LYMPHOCYTES # (AUTO) 0.8 (1.0-3.2); LYMPHOCYTES % 6.7 % (18.0-39.1); MEAN CORPUSCULAR HEMOGLOBIN 30.3 pg (28-32); MEAN CORPUSCULAR HGB CONC 32.8 g/dL (31-35); MEAN CORPUSCULAR VOLUME 92.4 fL (81-99); MONOCYTES # (AUTO) 1.3 (0.2-0.8); MONOCYTES % 10.5 % (4.4-11.3); NEUTROPHILS % 81.4 % (38.7-80.0); PLATELET COUNT 131 x10e3/uL (140-360); RED BLOOD COUNT 4.45 x10e6/uL (3.6-5.1); RED CELL DISTRIBUTION WIDTH 13.4 % (11.7-14.4)
[2020-02-28] MEDS: GABAPENTIN 300 MG CAP PO SCH ×2 (08:54→17:00)
[2020-02-28] MEDS: PANTOPRAZOLE SOD 40 MG TABEC PO SCH (08:54)
[2020-02-28 09:01] LABS: ANION GAP 13.5 mmol/L (8-16); CALCIUM 8.5 mg/dL (8.4-10.2); CREATININE, SERUM 1.26 mg/dL (0.57-1.11); POTASSIUM 4.5 mmol/L (3.5-5.1)
[2020-02-28] MEDS: ACETAMINOPHEN 325 MG TAB PO PRN (13:00)
[2020-02-28] MEDS ORDERED: SODIUM CHLORIDE 0.9% 250ML 250 ML ONE (17:00)
[2020-02-28] MEDS: LEVOFLOXACIN 250MG/D5W 50ML 50 ML IV SCH (17:00)
[2020-02-28] MEDS: DIPHENHYDRAMINE HCL 25 MG CAP PO SCH (20:24)
[2020-02-28] MEDS: CEFEPIME 1GM/NS 0.9% 50 ML 50 ML IV SCH (20:24)
[2020-02-29] VITALS (8 sets, daily range): BP systolic 137–151; BP diastolic 54–85
[2020-02-29] MEDS: PANTOPRAZOLE SOD 40 MG TABEC PO SCH (08:30)
[2020-02-29] MEDS: CEFEPIME 1GM/NS 0.9% 50 ML 50 ML IV SCH ×2 (09:00→21:02)
[2020-02-29] MEDS: ACETAMINOPHEN/CODEINE 300MG - 30MG TAB PO PRN ×2 (09:26→16:54)
[2020-02-29] MEDS: GABAPENTIN 300 MG CAP PO SCH ×2 (09:26→16:50)
[2020-02-29 11:46] LABS: BASOPHILS # (AUTO) 0.1 (0.0-0.1); BASOPHILS % 0.5 % (0.0-1.0); EOSINOPHILS # (AUTO) 0.2 (0.0-0.4); EOSINOPHILS % 1.4 % (0.0-6.0); HEMATOCRIT 39.9 % (34.2-44.1); HEMOGLOBIN 13.1 g/dL (12.0-16.0); LYMPHOCYTES # (AUTO) 1.3 (1.0-3.2); MEAN CORPUSCULAR HEMOGLOBIN 29.8 pg (28-32); MEAN CORPUSCULAR HGB CONC 32.8 g/dL (31-35); MEAN CORPUSCULAR VOLUME 90.7 fL (81-99); MONOCYTES # (AUTO) 1.7 (0.2-0.8); MONOCYTES % 15.3 % (4.4-11.3); NEUTROPHILS # (AUTO) 7.5 (2.1-6.9); PLATELET COUNT 156 x10e3/uL (140-360); RED CELL DISTRIBUTION WIDTH 13.3 % (11.7-14.4)
[2020-02-29 12:05] LABS: ANION GAP 12.7 mmol/L (8-16); CALCIUM 8.4 mg/dL (8.4-10.2); CREATININE, SERUM 1.01 mg/dL (0.57-1.11); MAGNESIUM 1.9 MG/DL (1.3-2.1); POTASSIUM 3.7 mmol/L (3.5-5.1)
[2020-02-29] MEDS ORDERED: AMLODIPINE BESYLATE 5 MG TAB PO ONE (13:30)
[2020-02-29] MEDS: LEVOFLOXACIN 250MG/D5W 50ML 50 ML IV SCH (17:01)
[2020-02-29] MEDS: DIPHENHYDRAMINE HCL 25 MG CAP PO SCH (21:02)
[2020-03-01] VITALS (7 sets, daily range): BP systolic 119–160; BP diastolic 63–89
[2020-03-01 05:40] LABS: BASOPHILS # (AUTO) 0.1 (0.0-0.1); BASOPHILS % 0.4 % (0.0-1.0); EOSINOPHILS # (AUTO) 0.4 (0.0-0.4); EOSINOPHILS % 3.5 % (0.0-6.0); HEMATOCRIT 41.1 % (34.2-44.1); HEMOGLOBIN 13.6 g/dL (12.0-16.0); LYMPHOCYTES # (AUTO) 1.2 (1.0-3.2); LYMPHOCYTES % 10.6 % (18.0-39.1); MEAN CORPUSCULAR HEMOGLOBIN 30.2 pg (28-32); MEAN CORPUSCULAR HGB CONC 33.1 g/dL (31-35); MEAN CORPUSCULAR VOLUME 91.1 fL (81-99); MONOCYTES # (AUTO) 1.7 (0.2-0.8); MONOCYTES % 15.5 % (4.4-11.3); NEUTROPHILS # (AUTO) 7.7 (2.1-6.9); PLATELET COUNT 152 x10e3/uL (140-360); RED BLOOD COUNT 4.51 x10e6/uL (3.6-5.1); RED CELL DISTRIBUTION WIDTH 13.5 % (11.7-14.4)
[2020-03-01 06:04] LABS: ANION GAP 13.7 mmol/L (8-16); CALCIUM 8.6 mg/dL (8.4-10.2); CREATININE, SERUM 0.94 mg/dL (0.57-1.11); POTASSIUM 3.7 mmol/L (3.5-5.1)
[2020-03-01] MEDS: PANTOPRAZOLE SOD 40 MG TABEC PO SCH (08:16)
[2020-03-01] MEDS: CEFEPIME 1GM/NS 0.9% 50 ML 50 ML IV SCH (08:16)
[2020-03-01] MEDS: GABAPENTIN 300 MG CAP PO SCH ×2 (08:17→16:18)
[2020-03-01] MEDS: ACETAMINOPHEN/CODEINE 300MG - 30MG TAB PO PRN ×2 (08:32→16:18)
[2020-03-01] MEDS ORDERED: BALSAM PERU/CASTOR OIL 60 GM OINT...G. TP SCH (09:00)
[2020-03-01] MEDS ORDERED: AMLODIPINE BESYLATE 5 MG TAB PO SCH (09:00)
[2020-03-01] MEDS ORDERED: CEFAZOLIN SOD 1 GM/NS 50ML 50 ML IV SCH (22:00)
== END 2020-03-01 18:54 | DRG 871 ==
LOC: ER 17:32 → ERHOLD 20:34 → IMCU 23:03 → MED/SURG2 02-28 15:25
PROVIDERS: ADMIT Internal Medicine; ATTEND Internal Medicine
PROC: 02HV33Z Insertion of Infusion Device into Superior Vena Cava, Percutaneous Approach (ICD-10-PCS; principal; 2020-02-28)
DX: A41.51 Sepsis due to Escherichia coli [E. coli] (principal); R65.21 Severe sepsis with septic shock; G93.41 Metabolic encephalopathy; N17.9 Acute kidney failure, unspecified; N39.0 Urinary tract infection, site not specified; I12.9 Hypertensive chronic kidney disease with stage 1 through stage 4 chronic kidney disease, or unspecified chronic kidney disease; N18.30 Chronic kidney disease, stage 3 unspecified; Z66 Do not resuscitate; Z91.81 History of falling; H91.90 Unspecified hearing loss, unspecified ear; E86.0 Dehydration; Z74.09 Other reduced mobility; R00.1 Bradycardia, unspecified; K21.9 Gastro-esophageal reflux disease without esophagitis; E66.9 Obesity, unspecified; Z68.30 Body mass index [BMI] 30.0-30.9, adult; Z51.5 Encounter for palliative care; R60.0 Localized edema; L89.152 Pressure ulcer of sacral region, stage 2
CPT/HCPCS: 36415; 36569; 71045; 71250; 74176; 80048; 80053; 81001; 82550; 82553; 83605; 83735; 83880; 84100; 84484; 85025; 87040; 87071; 87086; 87186; 87205; 93005; 97139; 99251; 99285; J0360; J0692; J1956; J2405; J7030; J7050; U0002